=== PATIENT | female | born 1970 ===

== ENCOUNTER 2017-02-08 08:08 | Day surgery (SDC) | payer OTHER ==
[2017-02-05 15:11] VITALS: BMI 23.9
[2017-02-08] MEDS ORDERED: PROPOFOL 20 ML ONE ×2 (08:54)
[2017-02-08 09:38] VITALS: TEMP 97.8
[2017-02-08 10:35] VITALS: BP 103/65; PULSE 63
== END 2017-02-08 10:35 | disposition home or self-care (01) ==
LOC: JASU-ENDO 08:08
PROVIDERS: ATTEND Internal Medicine Gastroenterology
PROC: 0DJD8ZZ Inspection of Lower Intestinal Tract, Via Natural or Artificial Opening Endoscopic (ICD-10-PCS; principal; 2017-02-08 08:00)
DX: Z12.11 Encounter for screening for malignant neoplasm of colon (principal); K59.00 Constipation, unspecified; K92.1 Melena; D50.9 Iron deficiency anemia, unspecified
CPT/HCPCS: 84703